=== PATIENT | female | born 1985 | race Caucasian/White ===

== ENCOUNTER 2019-12-14 04:14 | Inpatient (IN) | payer OTHER, SELFPAY ==
[~2019-12-14] VITALS: Ht 160 cm; Wt 67.1 kg
[2019-12-14 04:20] VITALS: BP_SYST 132
[2019-12-14] MEDS ORDERED: ACETAMINOPHEN 500 MG TABLET PO ONE (04:30)
[2019-12-14] MEDS ORDERED: VANCOMYCIN HCL 1,000 MG in D5W 250 ML IV ONE (04:30)
[2019-12-14] MEDS ORDERED: cefTRIAXone 1 GM IVPB PREMIX 50 ML IV ONE (04:30)
[2019-12-14] MEDS ORDERED: NS 1000 ML IV.SOLN IV ONE (04:30)
[2019-12-14] MEDS ORDERED: VANCOMYCIN HCL 1000 MG/VIAL IV ONE (04:56)
[2019-12-14 05:10] LABS: HEMOGLOBIN 11.3 g/dL (12.0-16.0); MEAN CORPUSCULAR HEMOGLOBIN 30 pg (27-31); MEAN CORPUSCULAR HGB CONC 33 % (32-36); MEAN CORPUSCULAR VOLUME 91 fL (79.0-98.0); PLATELET COUNT (AUTO) 185 K/uL (130-430); RED BLOOD CELL COUNT(AUTO) 3.75 MIL/uL (4.2-6.2); RED CELL DISTRIBUTION WIDTH 13.4 % (9.0-15.0); WHITE BLOOD COUNT (AUTO) 13.5 K/uL (4.8-10.8)
[2019-12-14 05:25] LABS: CALCIUM 7.7 mg/dL (8.4-11.0); CREATININE 0.89 mg/dL (0.55-1.30); POTASSIUM 3.9 mmol/L (3.5-5.1)
[2019-12-14 05:27] LABS: PROTHROMBIN TIME 10.2 SECS (9.5-12.5)
[2019-12-14 05:30] LABS: ATYPICAL LYMPHOCYTES % 0 % (0-0); BAND % (MANUAL) 2 % (0-6); BASOPHILS % (MANUAL) 1 % (0-2); EOSINOPHILS % (MANUAL) 0 % (0-7); LYMPHOCYTES % (MANUAL) 3 % (20-46); MONOCYTES % (MANUAL) 11 % (0-11)
[2019-12-14 05:31] LABS: ALBUMIN 3.2 g/dL (3.4-4.8); TOTAL BILIRUBIN 0.4 mg/dL (0.0-1.0)
[2019-12-14 06:05] LABS: INFLUENZA A&B ANTIGEN SCREEN NEGATIVE FOR A & B (NEGATIVE)
[2019-12-14 06:08] LABS: STREPTOCOCCUS A SCREEN (RAPID) NEGATIVE (NEGATIVE)
[2019-12-14 06:21] LABS: BILIRUBIN,URINE NEGATIVE (NEGATIVE); BLOOD, URINE 2+ (NEGATIVE); CLARITY/URINE CLEAR (CLEAR); COLOR,URINE YELLOW (YELLOW); GLUCOSE,URINE NEGATIVE (NEGATIVE); KETONES,URINE TRACE (NEGATIVE); LEUKOCYTE ESTERASE ,URINE TRACE (NEGATIVE); NITRITE, URINE NEGATIVE (NEGATIVE); PROTEIN URINE TRACE (NEGATIVE); UROBILINOGEN,URINE 0.2 (0.2-1.0)
[2019-12-14 06:36] LABS: BACTERIA,URINE MODERATE /HPF (None Seen)
[2019-12-14 07:40] VITALS: BP_SYST 110
[2019-12-14] MEDS: D5/0.45 NS 1,000 ML IV SCH ×2 (08:59→17:48)
[2019-12-14] MEDS ORDERED: ALBU8.5H8 INH (09:30)
[2019-12-14] MEDS ORDERED: ACETAMINOPHEN 325 MG TABLET PO PRN ×2 (11:45→14:45)
[2019-12-14 12:00] VITALS: BP_SYST 113
[2019-12-14] MEDS: ONDANSETRON HCL 4 MG/2 ML VIAL IVP PRN ×2 (12:04→18:01)
[2019-12-14] MEDS ORDERED: ALBUTEROL SULFATE 0.083% 2.5 MG/3 ML VIAL.NEB INH PRN ×2 (14:45→15:15)
[2019-12-14] MEDS ORDERED: LORazepam 2 MG/ML VIAL IVP PRN (14:45)
[2019-12-14 16:00] VITALS: BP_SYST 118
[2019-12-14 19:00] VITALS: BP_SYST 113
[2019-12-14 20:00] VITALS: BP_SYST 113
[2019-12-14] MEDS: ENOXAPARIN SODIUM 40 MG/0.4 ML SYRINGE SUBCUT SCH ×2 (20:45→21:00)
[2019-12-15] VITALS: BP_SYST 123
[2019-12-15] MEDS: ONDANSETRON HCL 4 MG/2 ML VIAL IVP PRN (00:08)
[2019-12-15] MEDS: D5/0.45 NS 1,000 ML IV SCH ×3 (02:47→23:18)
[2019-12-15] MEDS: cefTRIAXone 1 GM IVPB PREMIX 50 ML IV SCH (05:24)
[2019-12-15 06:34] LABS: BASOPHILS % (AUTO) 0.5 % (0.0-2.0); EOSINOPHILS % (AUTO) 0.4 % (0.0-4.0); HEMATOCRIT 32.6 % (36-48); LYMPHOCYTES # (AUTO) 1.8 K/uL (1.0-5.5); LYMPHOCYTES % (AUTO) 18.1 % (20.5-51.5); MEAN CORPUSCULAR HEMOGLOBIN 31 pg (27-31); MEAN CORPUSCULAR HGB CONC 34 % (32-36); MEAN CORPUSCULAR VOLUME 91 fL (79.0-98.0); MONOCYTES # (AUTO) 1.3 K/uL (0.0-1.0); MONOCYTES % (AUTO) 13.5 % (1.7-9.3); NEUTROPHILS # (AUTO) 6.7 K/uL (1.8-7.7); NEUTROPHILS % (AUTO) 67.5 % (40.0-70.0); PLATELET COUNT (AUTO) 213 K/uL (130-430); RED BLOOD CELL COUNT(AUTO) 3.57 MIL/uL (4.2-6.2); RED CELL DISTRIBUTION WIDTH 13.5 % (9.0-15.0); WHITE BLOOD COUNT (AUTO) 9.9 K/uL (4.8-10.8)
[2019-12-15 06:42] LABS: CALCIUM 7.8 mg/dL (8.4-11.0); CREATININE 0.82 mg/dL (0.55-1.30); POTASSIUM 3.4 mmol/L (3.5-5.1)
[2019-12-15 06:52] LABS: PROTHROMBIN TIME 10.5 SECS (9.5-12.5)
[2019-12-15 08:00] VITALS: BP_SYST 119
[2019-12-15] MEDS ORDERED: POTASSIUM CHLORIDE 20 MEQ TAB.PRT.SR PO ONE (09:45)
[2019-12-15] MEDS: ENOXAPARIN SODIUM 40 MG/0.4 ML SYRINGE SUBCUT SCH (10:08)
[2019-12-15 12:00] VITALS: BP_SYST 131
[2019-12-15 16:00] VITALS: BP_SYST 126
[2019-12-15] MEDS ORDERED: ASCORBIC ACID 500 MG TABLET PO ONE (16:15)
[2019-12-15] MEDS ORDERED: CHOLECALCIFEROL (VITAMIN D3) 2,000 UNIT TABLET PO ONE (16:15)
[2019-12-15 20:00] VITALS: BP_SYST 119
[2019-12-16] VITALS: BP_SYST 110
[2019-12-16] MEDS: cefTRIAXone 1 GM IVPB PREMIX 50 ML IV SCH (05:00)
[2019-12-16 07:46] LABS: BASOPHILS # (AUTO) 0.1 K/uL (0.0-0.2); EOSINOPHILS # (AUTO) 0.1 K/uL (0.0-0.4); EOSINOPHILS % (AUTO) 1.9 % (0.0-4.0); HEMATOCRIT 32.8 % (36-48); HEMOGLOBIN 10.9 g/dL (12.0-16.0); LYMPHOCYTES # (AUTO) 1.9 K/uL (1.0-5.5); LYMPHOCYTES % (AUTO) 31.7 % (20.5-51.5); MEAN CORPUSCULAR HEMOGLOBIN 30 pg (27-31); MEAN CORPUSCULAR HGB CONC 33 % (32-36); MEAN CORPUSCULAR VOLUME 91 fL (79.0-98.0); MONOCYTES # (AUTO) 0.8 K/uL (0.0-1.0); MONOCYTES % (AUTO) 14.3 % (1.7-9.3); NEUTROPHILS % (AUTO) 51.1 % (40.0-70.0); PLATELET COUNT (AUTO) 248 K/uL (130-430); RED BLOOD CELL COUNT(AUTO) 3.59 MIL/uL (4.2-6.2); RED CELL DISTRIBUTION WIDTH 13.5 % (9.0-15.0); WHITE BLOOD COUNT (AUTO) 5.9 K/uL (4.8-10.8)
[2019-12-16 07:50] LABS: CALCIUM 8.4 mg/dL (8.4-11.0); CREATININE 0.78 mg/dL (0.55-1.30)
[2019-12-16 08:00] VITALS: BP_SYST 126
[2019-12-16 08:45] LABS: ERYTHROCYTE SEDIMENTATION RATE 89 MM/HR (0-20)
[2019-12-16] MEDS: D5/0.45 NS 1,000 ML IV SCH ×2 (09:00→20:14)
[2019-12-16] MEDS: CHOLECALCIFEROL (VITAMIN D3) 2,000 UNIT TABLET PO SCH (09:00)
[2019-12-16] MEDS: ENOXAPARIN SODIUM 40 MG/0.4 ML SYRINGE SUBCUT SCH (09:00)
[2019-12-16] MEDS: ASCORBIC ACID 500 MG TABLET PO SCH (09:00)
[2019-12-16 12:15] VITALS: BP_SYST 127
[2019-12-16 16:15] VITALS: BP_SYST 118
[2019-12-16 20:00] VITALS: BP_SYST 142
[2019-12-17] VITALS: BP_SYST 123
[2019-12-17] MEDS: D5/0.45 NS 1,000 ML IV SCH ×2 (05:23→15:00)
[2019-12-17] MEDS: cefTRIAXone 1 GM IVPB PREMIX 50 ML IV SCH (05:23)
[2019-12-17 08:00] VITALS: BP_SYST 128
[2019-12-17 08:30] LABS: BASOPHILS # (AUTO) 0.1 K/uL (0.0-0.2); BASOPHILS % (AUTO) 1.2 % (0.0-2.0); EOSINOPHILS # (AUTO) 0.2 K/uL (0.0-0.4); EOSINOPHILS % (AUTO) 3.2 % (0.0-4.0); HEMATOCRIT 37.2 % (36-48); HEMOGLOBIN 12.3 g/dL (12.0-16.0); LYMPHOCYTES # (AUTO) 1.9 K/uL (1.0-5.5); LYMPHOCYTES % (AUTO) 31.9 % (20.5-51.5); MEAN CORPUSCULAR HEMOGLOBIN 30 pg (27-31); MEAN CORPUSCULAR HGB CONC 33 % (32-36); MEAN CORPUSCULAR VOLUME 91 fL (79.0-98.0); MONOCYTES # (AUTO) 0.6 K/uL (0.0-1.0); MONOCYTES % (AUTO) 10.3 % (1.7-9.3); NEUTROPHILS # (AUTO) 3.2 K/uL (1.8-7.7); NEUTROPHILS % (AUTO) 53.4 % (40.0-70.0); PLATELET COUNT (AUTO) 340 K/uL (130-430); RED BLOOD CELL COUNT(AUTO) 4.08 MIL/uL (4.2-6.2); RED CELL DISTRIBUTION WIDTH 13.3 % (9.0-15.0); WHITE BLOOD COUNT (AUTO) 5.9 K/uL (4.8-10.8)
[2019-12-17] MEDS: ASCORBIC ACID 500 MG TABLET PO SCH (08:30)
[2019-12-17] MEDS: CHOLECALCIFEROL (VITAMIN D3) 2,000 UNIT TABLET PO SCH (08:30)
[2019-12-17] MEDS: ENOXAPARIN SODIUM 40 MG/0.4 ML SYRINGE SUBCUT SCH (08:30)
[2019-12-17 08:49] LABS: ALBUMIN 2.9 g/dL (3.4-4.8); C-REACTIVE PROTEIN QUANT 5.2 mg/dL (0-0.5); CALCIUM 8.5 mg/dL (8.4-11.0); CREATININE 0.62 mg/dL (0.55-1.30); POTASSIUM 3.9 mmol/L (3.5-5.1); TOTAL BILIRUBIN 0.2 mg/dL (0.0-1.0)
[2019-12-17 09:30] LABS: ERYTHROCYTE SEDIMENTATION RATE 80 MM/HR (0-20)
[2019-12-17 12:15] VITALS: BP_SYST 114
[2019-12-17 13:48] VITALS: BP_SYST 114
[2019-12-17] MEDS ORDERED: CIPR-172 PO (13:56)
[2019-12-17 16:30] VITALS: BP_SYST 138
== END 2019-12-17 18:35 | disposition home or self-care (01) | DRG 872 ==
LOC: SED 04:14 → STU 06:47
PROVIDERS: ADMIT Preventive Medicine Preventive Medicine/Occupational Environmental Medicine; ATTEND Preventive Medicine Preventive Medicine/Occupational Environmental Medicine
DX: A41.9 Sepsis, unspecified organism (principal); N39.0 Urinary tract infection, site not specified; E87.1 Hypo-osmolality and hyponatremia; B96.20 Unspecified Escherichia coli [E. coli] as the cause of diseases classified elsewhere; R53.1 Weakness; E87.6 Hypokalemia; E88.09 Other disorders of plasma-protein metabolism, not elsewhere classified; D64.9 Anemia, unspecified; E83.51 Hypocalcemia; R73.9 Hyperglycemia, unspecified; Z03.818 Encounter for observation for suspected exposure to other biological agents ruled out
CPT/HCPCS: 36415; 71045; 80048; 80053; 81000-TC; 83605; 84484; 84702-TC; 85007; 85025; 85027; 85379; 85384-TC; 85610-TC; 85651-TC; 85730-TC; 86140; 86403; 86710; 87040-TC; 87081; 87086; 87186-TC; 93005; 96365; 96367; 99285; G0378; J0696; J1650; J2405; J3370; J7030; U0003-CS